=== PATIENT | male | born 1975 | race Caucasian/White ===

== ENCOUNTER 2024-02-26 17:01 | Emergency (ER) | payer OTHER ==
[2024-02-26 17:07] VITALS: RESP 18; BMI 29.2
[2024-02-26] MEDS ORDERED: ACETAMINOPHEN INJECTION 100 ML IVPB ONE (18:11)
[2024-02-26] MEDS: ACETAMINOPHEN 1000 MG/100 ML BAG IVPB ONE (18:13)
[2024-02-26 18:23] LABS: BASO % 1.2 % (0-2.0); HEMATOCRIT 44.3 % (35.4-49); HEMOGLOBIN 14.9 GM/dL (11.7-16.9); LYMPH % 29.8 % (8-40); MCH 34.2 pg (25.7-33.7); MCHC 33.7 g/dl (32.0-35.9); MEAN CELL VOLUME 101.6 fl (80-96); MEAN PLT VOLUME 8.1 fl (7.5-11.1); MONO % 9.1 % (3.8-10.2); NEUT % 55.9 % (42.8-82.8); PLATELET COUNT 299 10^3/uL (134-434); RBC 4.36 M/mm3 (4.00-5.60); RDW 14.3 % (11.9-15.9)
[2024-02-26 18:39] LABS: POTASSIUM 4.1 mmol/L (3.5-5.1)
[2024-02-26 18:40] LABS: CALCIUM 9.2 mg/dL (8.5-10.1)
[2024-02-26 18:41] LABS: BLOOD UREA NITROGEN 12.7 mg/dL (7-18)
[2024-02-26 18:44] LABS: CREATININE 0.7 mg/dL (0.55-1.3)
[2024-02-26 18:47] LABS: INR 0.85 (0.83-1.09); PROTHROMBIN TIME (PATIENT) 9.7 SEC (9.7-13.0)
[2024-02-26 18:49] LABS: ACTIVATED PTT 28.6 SECONDS (25.2-36.5)
[2024-02-26] MEDS ORDERED: oxyCODONE HCL 5 MG TABLET ONE (18:54)
[2024-02-26] MEDS: oxyCODONE HCL 5 MG TABLET PO ONE (18:57)
[2024-02-26 20:29] LABS: PH,URINE 6.5 (5.0-8.0); URINE APPEARANCE CLEAR; URINE BILIRUBIN NEGATIVE (NEGATIVE); URINE COLOR YELLOW; URINE GLUCOSE (UA) NEGATIVE (NEGATIVE); URINE KETONE NEGATIVE (NEGATIVE); URINE PROTEIN TRACE (NEGATIVE)
[2024-02-26 20:31] LABS: URINE LEUK ESTERASE NEGATIVE (NEGATIVE); URINE NITRITE NEGATIVE (NEGATIVE); URINE UROBILINOGEN 0.2 mg/dL (0.2-1.0)
[2024-02-26 20:51] VITALS: BP 146/86; PULSE 80; TEMP 98.4
[2024-02-26] MEDS ORDERED: KETOROLAC TROMETHAMINE 15 MG/ML VIAL ONE (22:04)
[2024-02-26] MEDS: KETOROLAC TROMETHAMINE 15 MG/ML VIAL IVPUSH ONE (22:09)
== END 2024-02-26 23:39 | disposition home or self-care (01) ==
LOC: JER 17:01
PROC: 3E030NZ Introduction of Analgesics, Hypnotics, Sedatives into Peripheral Vein, Open Approach (ICD-10-PCS; principal; 2024-02-26)
PROC: 3E030GC Introduction of Other Therapeutic Substance into Peripheral Vein, Open Approach (ICD-10-PCS; 2024-02-26)
DX: S09.90XA Unspecified injury of head, initial encounter (principal); R07.81 Pleurodynia; R06.02 Shortness of breath; W10.8XXA Fall (on) (from) other stairs and steps, initial encounter
CPT/HCPCS: 36415; 70450-TC; 71046-TC-FY; 71260-TC; 72125-TC; 72170-TC-FY; 73502-TC-LT-FY; 74177-TC; 80048; 81003; 83605; 85025; 85610; 85730; 86850; 86900; 86901; 93005; 93010; 99285-25; J0131; Q9967